=== PATIENT | male | born 2005 | race Caucasian/White ===

== ENCOUNTER 2024-02-14 12:24 | Emergency (ER) | END 2024-02-14 14:47 | disposition home or self-care (01) | LOC: ERS 12:24 | DX: S06.0X0A Concussion without loss of consciousness, initial encounter (principal); S09.90XA Unspecified injury of head, initial encounter; V09.9XXA Pedestrian injured in unspecified transport accident, initial encounter; Y93.89 Activity, other specified | CPT/HCPCS: 70450; 72125 ==